=== PATIENT | female | born 1970 | race Caucasian/White ===

== ENCOUNTER 2019-11-04 07:32 | Outpatient (CLI) | payer BC ==
[~2019-11-04 07:32] MED LIST: FERRIC CARBOXYMALTOSE 750 MG in NORMAL SALINE 250 ML IV PRN; NORMAL SALINE 250 ML IV PRN
[2019-11-04 07:54] VITALS: BP 123/68
== END 2019-11-04 09:43 | disposition home or self-care (01) ==
LOC: II 07:32 → 5TH 07:55 → II 09:43
PROVIDERS: ATTEND Internal Medicine
DX: D50.8 Other iron deficiency anemias (principal); K91.2 Postsurgical malabsorption, not elsewhere classified
CPT/HCPCS: 96365; J7050; J1439

== ENCOUNTER 2019-11-11 07:38 | Outpatient (CLI) | payer BC ==
[2019-11-11 07:53] VITALS: BP 113/72
[2019-11-11] MEDS ORDERED: NORMAL SALINE 250 ML IV PRN (08:00)
[2019-11-11] MEDS ORDERED: FERRIC CARBOXYMALTOSE 750 MG in NORMAL SALINE 250 ML IV PRN (08:00)
== END 2019-11-11 09:18 | disposition home or self-care (01) ==
LOC: II 07:38 → 5TH 07:41 → II 09:18
PROVIDERS: ATTEND Internal Medicine
DX: D50.8 Other iron deficiency anemias (principal); K91.2 Postsurgical malabsorption, not elsewhere classified
CPT/HCPCS: 96365; J7050; J1439; 96374